=== PATIENT | female | born 1980 | race Caucasian/White ===

== ENCOUNTER 2021-03-01 20:46 | Emergency (ER) | payer OTHER ==
[~2021-03-01] VITALS: Ht 170.2 cm; Wt 117.9 kg
[~2021-03-01 20:46] MED LIST: CYMBALTA30 MG PO; FOLIC ACID 1 MG1 MG GT; IBUPROFEN 600600 M1 PO; LAMOTRIGINE200 MG PO; ONDANSETRON ODT4 MG PO; PHENERGAN 25 MG25 M1 PO; PRENATAL 1 PLU1 EACH PO; VICODIN 5-5001 EACH PO; ZOFRAN8 MG PO
[2021-03-01] MEDS ORDERED: KLONOPIN1 MG PO (21:35)
[2021-03-01] MEDS ORDERED: ALLEGRA ALLERG180 MG PO (21:36)
[2021-03-01] MEDS ORDERED: TRAZODONE HCL100 MG PO (21:36)
[2021-03-01] MEDS ORDERED: PROAIR HFA8.5 GM INH (21:36)
[2021-03-01 21:42] LABS: URINE BILIRUBIN NEGATIVE (Negative); URINE BLOOD TRACE (Negative); URINE COLOR YELLOW; URINE GLUCOSE-RANDOM NEGATIVE (Negative); URINE KETONES NEGATIVE (Negative); URINE LEUKOCYTES 1+ (Negative); URINE NITRITE NEGATIVE (Negative); URINE PROTEIN NEGATIVE (Negative); URINE SPECIFIC GRAVITY 1.025 (1.005-1.030); URINE UROBILINOGEN 0.2 E.U./dl (0.2-1.0)
[2021-03-01 21:43] LABS: URINE CLARITY SL HAZY
[2021-03-01 21:49] LABS: BACTERIA >30 Many /HPF (None Seen); CASTS None Seen /LPF (None Seen); CRYSTALS None Seen /LPF (None Seen); MUCUS >6 Heavy strn/LPF (None Seen); SQUAMOUS 4-10 Moderate /LPF (0-3); TRANSITIONAL EPITHEL CELL 0-3 Few /LPF (None Seen); URINE RBC 3-10 Few /HPF (0-2); URINE WBC 6-15 Few /HPF (0-5)
[2021-03-01 21:50] LABS: AMP/METHAMP POSITIVE (Negative); BARBITURATES Negative (Negative); BENZODIAZEPINES Negative (Negative); COCAINE Negative (Negative); METHADONE Negative (Negative); OPIATES Negative (Negative); PCP Negative (Negative); THC POSITIVE (Negative)
[2021-03-01 23:13] LABS: HEMOGLOBIN 13.6 gm/dL (12.0-15.0); MCH 31.3 pg (26.0-34.0); MCHC 34.9 g/dL (28.0-37.0); MCV 89.7 fL (80.0-100.0); MPV 8.8 fl. (7.2-11.1); RBC 4.35 mil/uL (4.20-5.00); WBC 9.1 thou/uL (4.0-11.0)
[2021-03-01 23:23] LABS: CREATININE 0.9 mg/dL (0.6-1.3); POTASSIUM 3.7 mmol/L (3.5-5.1)
[2021-03-01 23:27] LABS: ALBUMIN 3.6 g/dL (3.4-5.0); ALCOHOL < 10 mg/dL (<10); SALICYLATE < 2.8 mg/dL (2.8-20.0); TOTAL BILIRUBIN 0.2 mg/dL (<0.1-1.0); TOTAL PROTEIN 7.4 g/dL (6.4-8.2)
[2021-03-01 23:29] LABS: ACETAMINOPHEN < 2 ug/mL (10-30)
[2021-03-02] MEDS ORDERED: CONCERTA36 M1 PO (00:22)
[2021-03-02] MEDS ORDERED: SINGULAIR 10 MG10 M1 PO (00:22)
[2021-03-02 10:05] VITALS: BP 137/82
== END 2021-03-02 10:05 ==
LOC: M.ERS 20:46
PROVIDERS: Personal Emergency Response Attendant
DX: R45.851 Suicidal ideations (principal); Z90.89 Acquired absence of other organs; Z90.710 Acquired absence of both cervix and uterus; Z98.890 Other specified postprocedural states; Z88.1 Allergy status to other antibiotic agents; Z88.5 Allergy status to narcotic agent; Z88.2 Allergy status to sulfonamides; Z88.8 Allergy status to other drugs, medicaments and biological substances; Z20.822 Contact with and (suspected) exposure to COVID-19